=== PATIENT | female | born 1950 | race Caucasian/White ===

== ENCOUNTER → 2020-07-29 | Outpatient (CLI) | payer MEDICARE ==
[~2020-07-29] MED LIST: ACET-1600 PO; ATOR40TA78 PO; BUSP15TA PO; CITA20TA6 PO; CYAN1TAB29 PO; GABA800T5 PO; HYDR-1067 PO; IBUP-1222 PO; LEVO88TA61 PO; LISI-170 PO; METH-438 PO; OMEP-110 PO; TRAZ-175 PO; UBID1CAP43 PO; VITA400C43 PO
[2020-07-29 15:11] LABS: ALANINE AMINOTRANSFERASE 30 U/L (12-78); ALBUMIN 4.2 g/dL (3.4-5.0); ANION GAP 3 mmol/L (5-15); CALCIUM 9.5 mg/dL (8.5-10.1); CHLORIDE 102 mmol/L (98-107); CREATININE 0.94 mg/dL (0.55-1.02)
[2020-07-29 15:13] LABS: ALKALINE PHOSPHATASE 82 U/L (45-117); BILIRUBIN,TOTAL 0.3 mg/dL (0.2-1.0); TOTAL PROTEIN 7.3 g/dL (6.4-8.2)
== END | disposition home or self-care (01) ==
LOC: STAR 13:46
PROVIDERS: ATTEND Orthopaedic Surgery
DX: Z01.818 Encounter for other preprocedural examination (principal); M18.12 Unilateral primary osteoarthritis of first carpometacarpal joint, left hand; Z20.822 Contact with and (suspected) exposure to COVID-19
CPT/HCPCS: 80053; 87635; 93005

== ENCOUNTER 2020-08-04 07:35 | Day surgery (SDC) | payer MEDICARE ==
[~2020-08-04] VITALS: Ht 162.6 cm; Wt 74.7 kg
[~2020-08-04 07:35] MED LIST changes: +BUPIVACAINE/PF 0.5% ONE; +LIDOCAINE-MPF 1%, 5ML ONE
[2020-08-04 08:18] VITALS: BP 158/82
[2020-08-04] MEDS ORDERED: CHLORHEXIDINE 15 ML UDC ONE (08:20)
[2020-08-04] MEDS ORDERED: LACTATED RINGERS 1,000 ML IV SCH (08:30)
[2020-08-04] MEDS ORDERED: CHLORHEXIDINE 15 ML UDC MM ONE (08:30)
[2020-08-04] MEDS ORDERED: FENTANYL PF 100 MCG/2ML ONE ×2 (09:26→10:41)
[2020-08-04] MEDS ORDERED: PROPOFOL 10 MG/ML, 50ML ONE (09:42)
[2020-08-04] MEDS ORDERED: CEFAZOLIN 1,000 MG ONE (09:42)
[2020-08-04] MEDS ORDERED: DEXAMETHASONE 4 MG/ML, 1ML ONE (09:42)
[2020-08-04] MEDS ORDERED: ONDANSETRON 2MG/ML, 2ML ONE (09:42)
[2020-08-04] MEDS ORDERED: LABETALOL 5MG/ML, 20ML IV PRN (10:30)
[2020-08-04] MEDS ORDERED: METHOCARBAMOL 1,000 MG in DEXTROSE 5% 100 ML IV PRN (10:30)
[2020-08-04] MEDS ORDERED: EPHEDRINE 50 MG/ML, 1ML IVPush PRN (10:30)
[2020-08-04] MEDS ORDERED: HYDROmorphone 1 MG/ML, 1ML INJ IVPush PRN (10:30)
[2020-08-04] MEDS ORDERED: ONDANSETRON 2MG/ML, 2ML IVPush PRN (10:30)
[2020-08-04] MEDS ORDERED: hydrALAzine 20 MG/ML, 1ML IV PRN (10:30)
[2020-08-04] MEDS ORDERED: PROMETHAZINE 25 MG/ML, 1ML IVPush PRN (10:30)
[2020-08-04] MEDS ORDERED: MEPERIDINE/PF 25MG/0.5ML IVPush PRN (10:30)
[2020-08-04] MEDS ORDERED: OXYcodone 5 MG/5 ML ORAL.SOL UDC PO PRN (10:30)
[2020-08-04] MEDS ORDERED: ACETAMINOPHEN 325 MG TABLET PO PRN (10:30)
[2020-08-04] MEDS: FENTANYL PF 100 MCG/2ML IV PRN ×3 (10:42→11:06)
[2020-08-04] MEDS ORDERED: MEPERIDINE/PF 25MG/ML,1ML ONE (10:43)
[2020-08-04] MEDS ORDERED: ACETAMINOPHEN 650 MG/20.3 ML UDC ONE (10:58)
[2020-08-04] MEDS ORDERED: OXYcodone 5 MG/5 ML ORAL.SOL UDC ONE (10:59)
== END 2020-08-04 12:55 | disposition home or self-care (01) ==
LOC: OUT 07:35
PROVIDERS: ATTEND Orthopaedic Surgery
DX: M18.0 Bilateral primary osteoarthritis of first carpometacarpal joints (principal); M25.742 Osteophyte, left hand; I10 Essential (primary) hypertension; E78.5 Hyperlipidemia, unspecified; M79.7 Fibromyalgia; E07.9 Disorder of thyroid, unspecified; Z79.890 Hormone replacement therapy; Z79.891 Long term (current) use of opiate analgesic; Z79.899 Other long term (current) drug therapy; Z88.1 Allergy status to other antibiotic agents; Z91.040 Latex allergy status; Z82.61 Family history of arthritis
CPT/HCPCS: 25447; C1762; J0690; J1100; J2175; J2405; J2704; J3010; J7120

== ENCOUNTER 2020-11-17 01:56 | Inpatient (IN) | payer MEDICARE ==
[~2020-11-17] VITALS: Ht 165.1 cm; Wt 73.3 kg
[~2020-11-17 01:56] MED LIST changes: -BUPIVACAINE/PF 0.5% ONE; -HYDR-1067 PO; +HYDR-2214 PO; -LIDOCAINE-MPF 1%, 5ML ONE
--- NOTE | 2020-11-17 02:00 | NUR ---
INITIAL PT CONTACT. PT PRESENTS TO ED VIA EMS C/O POSSIBLE OD/ALTERED MENTAL STATUS. PER EMS PT HAS "NOT BEEN FEELING GREAT FOR THE DAY AND HAS BEEN SELF MEDICATING WITH OXY AND TRAZADONE. UNKNOW HOW MUCH SHE HAS TAKEN THROUGH THE DAY." PER PT WAS C/O NAUSEA AND VOMITING EARLY IN THE MORNING, "SHE THOUGHT IT WAS FOOD POISONING. SHE JUST SEEMED VERY TIRED AND LETHARGIC ALL DAY. THEN TONIGHT I NOTICED SHE WAS IN THE BATHROOM FOR A LONG TIME AND WENT TO SEE IF SHE WAS OK AND I FOUND HER CONFUSED LIKE SHE IS NOW. I TRIED TO STAND HER UP AND THEN SHE FELL IN BETWEEN THE CABINET AND TOILET, THATS WHEN I CALLED THE [facility]." PT A&OX1-2 UPON ARRIVAL, VERY DROWSY IN ROOM, DOZING OFF DURING EXAM. OPENS EYES AND RESPONDS TO VERBAL COMMANDS. PT PLACED IN GOWN, CONTINUOUS MONITORING. CALL LIGHT IN REACH. AT BEDSIDE. AWAITING ERP.
--- NOTE | 2020-11-17 02:40 | NUR ---
PT TO IMAGING
[2020-11-17 02:45] LABS: BASOPHILS % (AUTO) 0 % (0-1); EOSINOPHILS % (AUTO) 0 % (1-7); LYMPHOCYTES % (AUTO) 7 % (22-44); MEAN CORPUSCULAR HEMOGLOBIN 31.6 pg (27.0-34.8); MEAN CORPUSCULAR HGB CONC 34.3 g/dL (32.4-35.8); MEAN PLATELET VOLUME 7.2 fL (7.4-10.4); MONOCYTES % (AUTO) 4 % (2-9); NEUTROPHILS % (AUTO) 89 % (42-75); PLATELET COUNT 262 x10^3/uL (130-400); RED BLOOD COUNT 4.02 x10^6/uL (3.82-5.3); RED CELL DISTRIBUTION WIDTH 12.9 % (9.6-15.2)
[2020-11-17 02:46] LABS: MD NO
[2020-11-17 02:53] LABS: ALANINE AMINOTRANSFERASE 20 U/L (12-78); ALBUMIN 3.9 g/dL (3.4-5.0); ANION GAP 9 mmol/L (5-15); CHLORIDE 100 mmol/L (98-107)
[2020-11-17 02:55] LABS: SALICYLATE LEVEL < 1.7 mg/dL (2.8-20.0)
[2020-11-17 02:56] LABS: ALKALINE PHOSPHATASE 79 U/L (45-117); BILIRUBIN,TOTAL 0.5 mg/dL (0.2-1.0); CREATININE 0.98 mg/dL (0.55-1.02); TOTAL PROTEIN 7.1 g/dL (6.4-8.2)
--- NOTE | 2020-11-17 03:06 | NUR ---
ERP AT BEDSIDE TO RE-EVAL AND DISCUSS RESULTS WITH PT AND PT'S .
[2020-11-17 03:24] LABS: INTERNATIONAL NORMALIZED RATIO 1.06 (0.93-1.1); PROTHROMBIN TIME 11.3 Seconds (9.6-11.5)
[2020-11-17] MEDS ORDERED: ONDANSETRON 2MG/ML, 2ML ONE (03:25)
[2020-11-17] MEDS ORDERED: FENTANYL PF 100 MCG/2ML ONE ×2 (03:25→04:18)
[2020-11-17] MEDS ORDERED: FENTANYL PF 100 MCG/2ML IV ONE (03:30)
[2020-11-17] MEDS ORDERED: SODIUM CHLORIDE 0.9% 1,000ML IVBOLUS ONE (03:30)
[2020-11-17] MEDS ORDERED: LEVETIRACETAM 1,000 MG in SODIUM CHLORIDE 0.9% 100 ML IV ONE (03:30)
[2020-11-17] MEDS ORDERED: ONDANSETRON 2MG/ML, 2ML IVPush ONE (03:30)
--- NOTE | 2020-11-17 03:51 | NUR ---
PT TO IMAGING
[2020-11-17] MEDS ORDERED: INSTRUCTION SEE COMMENTS XX ONE (04:00)
[2020-11-17] MEDS ORDERED: ONDANSETRON 4 MG TABLET PO PRN (04:00)
[2020-11-17] MEDS ORDERED: PROMETHAZINE 25 MG/ML, 1ML IM PRN (04:00)
[2020-11-17] MEDS ORDERED: LABETALOL 5MG/ML, 20ML IV PRN (04:00)
[2020-11-17] MEDS ORDERED: DOCUSATE 100 MG CAPSULE PO PRN (04:00)
[2020-11-17] MEDS ORDERED: ONDANSETRON 2MG/ML, 2ML IVPush PRN (04:00)
[2020-11-17] MEDS ORDERED: SODIUM CHLORIDE 0.9% 1,000 ML IV SCH (04:00)
[2020-11-17] MEDS ORDERED: BISACODYL 10 MG SUPP PR PRN (04:00)
[2020-11-17] MEDS ORDERED: POLYETHYLENE GLYCOL 17 GM PACKET PO PRN (04:00)
[2020-11-17] MEDS ORDERED: OMNIPAQUE 350 MG/ML, 75ML BOTTLE ONE (04:07)
--- NOTE | 2020-11-17 04:10 | NUR ---
PT RETURNED FROM IMAGING
[2020-11-17] MEDS ORDERED: GABA-827 PO (04:17)
[2020-11-17] MEDS ORDERED: CYAN1TAB29 PO (04:17)
[2020-11-17] MEDS ORDERED: OMEP-110 PO (04:17)
[2020-11-17] MEDS ORDERED: LEVO88TA61 PO (04:17)
[2020-11-17] MEDS ORDERED: UBID1CAP43 PO (04:17)
[2020-11-17] MEDS ORDERED: VITAMIN E PO (04:17)
[2020-11-17] MEDS ORDERED: FENTANYL PF 100 MCG/2ML IVPush ONE (04:30)
[2020-11-17] MEDS ORDERED: POTASSIUM CHLORIDE 40 MEQ in SODIUM CHLORIDE 0.9% 500 ML IV ONE (04:30)
--- NOTE | 2020-11-17 04:30 | NUR ---
PT SITTING UPRIGHT ON GURNEY, CONVERSING WITH THIS RN AND . PT NOW A&OX3-4. PT ABLE TO EXPRESS PAIN AND NEED TO USE BATHROOM. PURE WICK PLACED AND PT URINATED. URINE SAMPLE COLLECTED AND WALKED TO LAB BY THIS RN. PT DENIES ANY ADDITIONAL NEEDS AT THIS TIME. CALL LIGHT AND BELONGINGS WITHIN REACH. REMAINS AT BEDSIDE.
[2020-11-17 04:59] LABS: AMPHETAMINE SCREEN, URINE Negative (Negative); BARBITURATE SCREEN, URINE Negative (Negative); BENZODIAZEPINE SCREEN, URINE Negative (Negative); CANNABINOID SCREEN, URINE Negative (Negative); COCAINE SCREEN, URINE Negative (Negative); METHADONE SCREEN, URINE Negative (Negative); OPIATE SCREEN, URINE Negative (Negative)
--- NOTE | 2020-11-17 05:19 | NUR ---
Pt to be admitted to [facility], room 546. Report called to Madiha.
[2020-11-17 05:38] VITALS: BP 131/56
[2020-11-17] MEDS ORDERED: LORazepam 2 MG/ML, 1ML IVPush PRN (08:00)
[2020-11-17 08:27] LABS: ANION GAP 6 mmol/L (5-15); CALCIUM 8.9 mg/dL (8.5-10.1); CHLORIDE 107 mmol/L (98-107)
[2020-11-17] MEDS ORDERED: LEVETIRACETAM 500 MG TABLET PO SCH (09:00)
[2020-11-17] MEDS: LEVETIRACETAM 500 MG in SODIUM CHLORIDE 0.9% 100 ML IV SCH (13:09)
[2020-11-17] MEDS: ENALAPRILAT 1.25 MG/ML, 2ML IV PRN (13:15)
[2020-11-17 13:23] LABS: ANION GAP 4 mmol/L (5-15); CALCIUM 8.8 mg/dL (8.5-10.1); CHLORIDE 107 mmol/L (98-107); CREATININE 0.77 mg/dL (0.55-1.02)
[2020-11-17] MEDS: MORPHINE SULFATE 4 MG/ML, 1ML IVPush PRN ×2 (15:22→20:24)
[2020-11-18] MEDS: LEVETIRACETAM 500 MG in SODIUM CHLORIDE 0.9% 100 ML IV SCH ×2 (00:13→13:35)
[2020-11-18] MEDS: MORPHINE SULFATE 4 MG/ML, 1ML IVPush PRN ×2 (00:14→11:09)
[2020-11-18 04:29] LABS: BASOPHILS % (AUTO) 0 % (0-1); EOSINOPHILS % (AUTO) 0 % (1-7); LYMPHOCYTES % (AUTO) 20 % (22-44); MEAN CORPUSCULAR HEMOGLOBIN 32.1 pg (27.0-34.8); MEAN CORPUSCULAR HGB CONC 34.4 g/dL (32.4-35.8); MEAN PLATELET VOLUME 7.1 fL (7.4-10.4); MONOCYTES % (AUTO) 11 % (2-9); NEUTROPHILS % (AUTO) 69 % (42-75); PLATELET COUNT 232 x10^3/uL (130-400); RED CELL DISTRIBUTION WIDTH 13.2 % (9.6-15.2)
[2020-11-18 04:30] LABS: MD NO
[2020-11-18 04:44] LABS: ANION GAP 5 mmol/L (5-15); CALCIUM 8.3 mg/dL (8.5-10.1); CHLORIDE 107 mmol/L (98-107); CHOLESTEROL, TOTAL 195 mg/dL (140-239); CREATININE 0.67 mg/dL (0.55-1.02); TRIGLYCERIDES 88 mg/dL (50-200); VLDL CHOLESTEROL 18 mg/dL (0-25)
[2020-11-18 04:47] LABS: CHOL/HDL RATIO 3.3; HDL CHOL % 31 % (28-40); HDL CHOLESTEROL (DIRECT) 60 mg/dL (40-60); LDL CHOLESTEROL,CALCULATED 117 mg/dL (54-169)
[2020-11-18] MEDS ORDERED: POTASSIUM PHOSPHATE 22 MEQ in SODIUM CHLORIDE 0.9% 500 ML IV ONE (06:30)
[2020-11-18] MEDS: ACETAMINOPHEN 325 MG TABLET PO PRN ×3 (09:02→20:29)
[2020-11-18] MEDS: CITALOPRAM 20 MG TABLET PO SCH (09:42)
[2020-11-18] MEDS: LEVOTHYROXINE 88 MCG TABLET PO SCH (09:42)
[2020-11-18] MEDS: GABAPENTIN 400 MG CAPSULE PO SCH ×2 (15:32→20:15)
[2020-11-18] MEDS: ENALAPRILAT 1.25 MG/ML, 2ML IV PRN (17:15)
[2020-11-18 19:50] VITALS: BP 163/84
[2020-11-18] MEDS: ATORVASTATIN 40 MG TABLET PO SCH (20:15)
[2020-11-18 22:21] VITALS: BP 157/79
[2020-11-19 00:28] VITALS: BP 118/69
[2020-11-19] MEDS: LEVETIRACETAM 500 MG in SODIUM CHLORIDE 0.9% 100 ML IV SCH ×2 (01:33→13:10)
[2020-11-19] MEDS: OMEPRAZOLE 20 MG CAPSULE.DR PO SCH (06:48)
[2020-11-19] MEDS: LEVOTHYROXINE 88 MCG TABLET PO SCH (06:48)
[2020-11-19 06:53] VITALS: BP 162/81
[2020-11-19] MEDS: GABAPENTIN 400 MG CAPSULE PO SCH ×3 (08:47→20:38)
[2020-11-19] MEDS: CITALOPRAM 20 MG TABLET PO SCH (08:47)
[2020-11-19] MEDS ORDERED: LISINOPRIL 10 MG TABLET PO SCH ×2 (09:00→21:00)
[2020-11-19] MEDS: ACETAMINOPHEN 325 MG TABLET PO PRN ×3 (09:52→23:32)
[2020-11-19 13:36] VITALS: BP 149/69
[2020-11-19] MEDS: ATORVASTATIN 40 MG TABLET PO SCH (20:38)
[2020-11-19 21:02] VITALS: BP 184/80
[2020-11-19] MEDS ORDERED: ENALAPRILAT 1.25 MG/ML, 1ML ONE (21:58)
[2020-11-19] MEDS: ENALAPRILAT 1.25 MG/ML, 2ML IV PRN (22:00)
[2020-11-19 22:35] VITALS: BP 154/68
[2020-11-20 00:55] VITALS: BP 151/75
[2020-11-20] MEDS: LEVETIRACETAM 500 MG in SODIUM CHLORIDE 0.9% 100 ML IV SCH ×2 (01:35→13:09)
[2020-11-20] MEDS: LEVOTHYROXINE 88 MCG TABLET PO SCH (05:30)
[2020-11-20] MEDS: OMEPRAZOLE 20 MG CAPSULE.DR PO SCH (05:30)
[2020-11-20 06:52] VITALS: BP 157/77
[2020-11-20] MEDS: LISINOPRIL 20 MG TABLET PO SCH ×2 (09:12→20:48)
[2020-11-20] MEDS: CITALOPRAM 20 MG TABLET PO SCH (09:12)
[2020-11-20] MEDS: GABAPENTIN 400 MG CAPSULE PO SCH ×3 (09:12→20:48)
[2020-11-20 12:48] VITALS: BP 181/80
[2020-11-20] MEDS ORDERED: ENALAPRILAT 1.25 MG/ML, 1ML ONE (13:03)
[2020-11-20] MEDS: ACETAMINOPHEN 325 MG TABLET PO PRN ×2 (13:08→20:48)
[2020-11-20] MEDS: ENALAPRILAT 1.25 MG/ML, 2ML IV PRN (13:09)
[2020-11-20] MEDS: AMLODIPINE 5 MG TABLET PO SCH (14:23)
[2020-11-20 14:27] VITALS: BP 145/81
[2020-11-20 18:51] VITALS: BP 133/72
[2020-11-20 20:45] VITALS: BP 143/73
[2020-11-20] MEDS: TRAZODONE 100MG TABLET PO SCH (20:48)
[2020-11-20] MEDS: ATORVASTATIN 40 MG TABLET PO SCH (20:48)
[2020-11-21] MEDS: LEVETIRACETAM 500 MG in SODIUM CHLORIDE 0.9% 100 ML IV SCH (00:30)
[2020-11-21] MEDS: ACETAMINOPHEN 325 MG TABLET PO PRN ×4 (00:31→21:18)
[2020-11-21 00:39] VITALS: BP 114/67
[2020-11-21 05:19] LABS: BASOPHILS % (AUTO) 0 % (0-1); EOSINOPHILS % (AUTO) 1 % (1-7); LYMPHOCYTES % (AUTO) 31 % (22-44); MEAN CORPUSCULAR HEMOGLOBIN 31.7 pg (27.0-34.8); MEAN CORPUSCULAR HGB CONC 34.9 g/dL (32.4-35.8); MEAN PLATELET VOLUME 7.6 fL (7.4-10.4); MONOCYTES % (AUTO) 10 % (2-9); NEUTROPHILS % (AUTO) 58 % (42-75); PLATELET COUNT 308 x10^3/uL (130-400); RED BLOOD COUNT 4.16 x10^6/uL (3.82-5.3); RED CELL DISTRIBUTION WIDTH 12.8 % (9.6-15.2)
[2020-11-21 05:30] LABS: CHLORIDE 100 mmol/L (98-107)
[2020-11-21 05:33] LABS: MD NO
[2020-11-21 05:35] LABS: ANION GAP 6 mmol/L (5-15); CALCIUM 8.6 mg/dL (8.5-10.1); CREATININE 0.75 mg/dL (0.55-1.02)
[2020-11-21] MEDS: LEVOTHYROXINE 88 MCG TABLET PO SCH (05:52)
[2020-11-21] MEDS: OMEPRAZOLE 20 MG CAPSULE.DR PO SCH (05:52)
[2020-11-21 06:28] VITALS: BP 110/67
[2020-11-21] MEDS: POTASSIUM CHLORIDE 20 MEQ TAB.ER.PRT PO SCH ×2 (08:39→15:28)
[2020-11-21] MEDS: LISINOPRIL 20 MG TABLET PO SCH ×2 (08:39→21:18)
[2020-11-21] MEDS: AMLODIPINE 5 MG TABLET PO SCH (08:39)
[2020-11-21] MEDS: LEVETIRACETAM 500 MG TABLET PO SCH ×2 (08:40→21:18)
[2020-11-21] MEDS: GABAPENTIN 400 MG CAPSULE PO SCH ×3 (08:40→21:18)
[2020-11-21] MEDS: CITALOPRAM 20 MG TABLET PO SCH (08:40)
[2020-11-21 12:20] VITALS: BP 125/76
[2020-11-21 19:55] VITALS: BP 138/81
[2020-11-21 21:17] VITALS: BP 150/80
[2020-11-21] MEDS: ATORVASTATIN 40 MG TABLET PO SCH (21:18)
[2020-11-21] MEDS: TRAZODONE 100MG TABLET PO SCH (21:18)
[2020-11-22 02:00] VITALS: BP 149/77
[2020-11-22] MEDS: LEVOTHYROXINE 88 MCG TABLET PO SCH (05:11)
[2020-11-22] MEDS: OMEPRAZOLE 20 MG CAPSULE.DR PO SCH (05:11)
[2020-11-22 05:40] LABS: ANION GAP 4 mmol/L (5-15); CALCIUM 8.7 mg/dL (8.5-10.1); CHLORIDE 105 mmol/L (98-107); CREATININE 0.74 mg/dL (0.55-1.02)
[2020-11-22 07:44] VITALS: BP 135/76
[2020-11-22] MEDS: ACETAMINOPHEN 325 MG TABLET PO PRN ×2 (08:14→15:02)
[2020-11-22] MEDS: LEVETIRACETAM 500 MG TABLET PO SCH (08:14)
[2020-11-22] MEDS: GABAPENTIN 400 MG CAPSULE PO SCH ×2 (08:14→15:02)
[2020-11-22] MEDS: CITALOPRAM 20 MG TABLET PO SCH (08:14)
[2020-11-22] MEDS: AMLODIPINE 5 MG TABLET PO SCH (08:14)
[2020-11-22] MEDS: LISINOPRIL 20 MG TABLET PO SCH (08:15)
[2020-11-22] MEDS ORDERED: LEVE500T53 PO (11:18)
[2020-11-22] MEDS ORDERED: LISI40TA9 PO (11:18)
[2020-11-22] MEDS ORDERED: AMLO-150 PO (11:25)
[2020-11-22 13:05] VITALS: BP 129/76
== END 2020-11-22 16:10 | DRG 64 ==
LOC: ED 03:03 → EDIP 03:16 → CCU 05:22 → 4EST 11-18 18:44
PROVIDERS: ADMIT Internal Medicine; ATTEND Hospitalist
DX: I61.0 Nontraumatic intracerebral hemorrhage in hemisphere, subcortical (principal); G93.6 Cerebral edema; E87.1 Hypo-osmolality and hyponatremia; G93.40 Encephalopathy, unspecified; I60.9 Nontraumatic subarachnoid hemorrhage, unspecified; E87.6 Hypokalemia; I10 Essential (primary) hypertension; E78.5 Hyperlipidemia, unspecified; R27.0 Ataxia, unspecified; D64.9 Anemia, unspecified; E03.9 Hypothyroidism, unspecified; F32.9 Major depressive disorder, single episode, unspecified; F80.2 Mixed receptive-expressive language disorder; G62.9 Polyneuropathy, unspecified; Z87.820 Personal history of traumatic brain injury; Z90.49 Acquired absence of other specified parts of digestive tract; M19.90 Unspecified osteoarthritis, unspecified site; Z20.822 Contact with and (suspected) exposure to COVID-19; Z88.1 Allergy status to other antibiotic agents; Z91.040 Latex allergy status; I62.00 Nontraumatic subdural hemorrhage, unspecified
CPT/HCPCS: 36415; 70450; 70496; 70551; 80048; 80053; 80061; 80299; 80307; 80320; 80329; 82140; 82962; 83735; 84100; 85025; 85610; 85730; 87081; 87635; 93005; 96374; 96375; 99291; G0378; J1953; J2405; J2550; J3010; J3480; Q0162; Q9967; 92523-GN; G0480; J2060; J2270; J7030; J7040

== ENCOUNTER → 2020-12-22 | Outpatient (CLI) | payer MEDICARE ==
[~2020-12-22] MED LIST changes: +AMLO-150 PO; +GABA-827 PO; +GADOTERATE 10 MMOL/20ML SYR ONE; +LEVE500T53 PO; +LISI40TA9 PO; +VITAMIN E PO
== END | disposition home or self-care (01) ==
LOC: CFH 14:04
PROVIDERS: ATTEND Neurological Surgery
DX: S06.5X0A Traumatic subdural hemorrhage without loss of consciousness, initial encounter (principal); X58.XXXA Exposure to other specified factors, initial encounter; Y93.89 Activity, other specified; Y92.89 Other specified places as the place of occurrence of the external cause; Y99.8 Other external cause status
CPT/HCPCS: 70553; A9575